=== PATIENT | male | born 1945 | race Caucasian/White ===

== ENCOUNTER → 2019-03-17 | Outpatient (CLI) | payer OTHER ==
[~2019-03-17] MED LIST: BACTRIM DS TAB1 EACH PO; DICLOFENAC SODI25 MG PO; FLOMAX0.4 MG PO; HYZAAR 100-12.1 EACH PO; KEFLEX500 M1 PO; LEVAQUIN 500 M500 M2 PO; NEURONTIN600 MG PO; NORCO 5-325 TA1 EAC1 PO; PROSCAR 5MG TABL5 MG PO; SIMVASTATIN40 MG PO; VENTOLIN HFA 1818 GM INH
== END ==
LOC: M.ULTRA 14:30
DX: M79.605 Pain in left leg (principal); M79.89 Other specified soft tissue disorders

== ENCOUNTER 2019-08-21 21:27 | Emergency (ER) | payer OTHER ==
[~2019-08-21] VITALS: Ht 165.1 cm; Wt 122.5 kg
[2019-08-21 22:19] LABS: HEMOGLOBIN 13.8 gm/dL (14.0-18.0); MCH 29.5 pg (26.0-34.0); MCHC 33.6 g/dL (28.0-37.0); MCV 87.7 fL (80.0-100.0); MPV 9.7 fl. (7.2-11.1); NUCLEATED RBCS 0 /100WBC; PLATELET COUNT* 137 thou/uL (150-400); RBC 4.67 mil/uL (4.50-6.00); RDW-CV 15.1 % (10.5-14.5); WBC 9.7 thou/uL (4.0-11.0)
[2019-08-21 22:30] LABS: CALCIUM 9.4 mg/dL (8.5-10.1); CREATININE 1.1 mg/dL (0.6-1.3); POTASSIUM 3.3 mmol/L (3.5-5.1)
[2019-08-21 22:35] LABS: ALBUMIN 3.4 g/dL (3.4-5.0); TOTAL BILIRUBIN 0.9 mg/dL (<0.1-1.0); TOTAL PROTEIN 6.9 g/dL (6.4-8.2)
[2019-08-21 22:47] LABS: ABSOLUTE LYMPHOCYTES 0.5 thou/uL (0.8-5.3); ABSOLUTE MONOCYTES 0.9 thou/uL (0.0-1.2); ABSOLUTE NEUTROPHILS 8.3 thou/uL (1.6-8.1)
[2019-08-21 22:48] LABS: PLATELET ESTIMATE ADEQUATE
[2019-08-22 01:10] VITALS: BP 147/75
== END 2019-08-22 01:12 | disposition short-term general hospital (02) ==
LOC: M.ERS 21:27
PROVIDERS: Emergency Medicine
DX: S32.19XA Other fracture of sacrum, initial encounter for closed fracture (principal); S80.212A Abrasion, left knee, initial encounter; I10 Essential (primary) hypertension; Z98.890 Other specified postprocedural states; Z87.891 Personal history of nicotine dependence; W18.39XA Other fall on same level, initial encounter; Y93.01 Activity, walking, marching and hiking; Y92.89 Other specified places as the place of occurrence of the external cause; Y99.8 Other external cause status

== ENCOUNTER 2021-02-04 21:56 | Inpatient (IN) | payer OTHER ==
[~2021-02-04] VITALS: Ht 165.1 cm; Wt 147.9 kg
[2021-02-04 21:57] VITALS: BP 158/54
[2021-02-04 22:41] LABS: BE -2.6 mmol/L (-2 to +3); PCO2 42.2 mmHg (35.0-45.0); pH 7.353 (7.340-7.450)
[2021-02-04 22:44] LABS: HEMATOCRIT 42.6 % (42.0-52.0); HEMOGLOBIN 13.8 gm/dL (14.0-18.0); MCHC 32.4 g/dL (28.0-37.0); MCV 86.4 fL (80.0-100.0); MPV 8.6 fl. (7.2-11.1); NUCLEATED RBCS 0 /100WBC; PLATELET COUNT* 160 thou/uL (150-400); RBC 4.93 mil/uL (4.50-6.00); RDW-CV 16.5 % (10.5-14.5)
[2021-02-04 22:53] LABS: CALCIUM 8.8 mg/dL (8.5-10.1); POTASSIUM 4.5 mmol/L (3.5-5.1); PROTIME 10.7 Seconds (9.20-11.50)
[2021-02-04 22:57] LABS: ALBUMIN 3.5 g/dL (3.4-5.0); MAGNESIUM 1.9 mg/dL (1.8-2.4); TOTAL BILIRUBIN 0.7 mg/dL (<0.1-1.0)
[2021-02-04 23:19] LABS: ABSOLUTE LYMPHOCYTES 0.2 thou/uL (0.8-5.3); ABSOLUTE MONOCYTES 0.3 thou/uL (0.0-1.2); ABSOLUTE NEUTROPHILS 7.5 thou/uL (1.6-8.1); PLATELET ESTIMATE ADEQUATE
[2021-02-04 23:35] LABS: URINE BILIRUBIN NEGATIVE (Negative); URINE BLOOD NEGATIVE (Negative); URINE CLARITY CLEAR; URINE COLOR YELLOW; URINE GLUCOSE-RANDOM NEGATIVE (Negative); URINE KETONES NEGATIVE (Negative); URINE LEUKOCYTES-REFLEX NEGATIVE (Negative); URINE NITRITE-REFLEX NEGATIVE (Negative); URINE PROTEIN NEGATIVE (Negative); URINE SPECIFIC GRAVITY 1.025 (1.005-1.030)
[2021-02-05 03:00] VITALS: BP 124/64
[2021-02-05 03:45] VITALS: BP 130/56
[2021-02-05 09:36] VITALS: BP 109/49
[2021-02-05 12:00] VITALS: BP 120/51
[2021-02-05] MEDS ORDERED: LYRICA150 MG PO (13:50)
[2021-02-05] MEDS ORDERED: CENTRUM SILVER1 EAC7 PO (13:53)
[2021-02-05 16:00] VITALS: BP 125/59
[2021-02-06 00:06] VITALS: BP 94/58
[2021-02-06 04:03] VITALS: BP 127/55
[2021-02-06 08:00] VITALS: BP 117/44
[2021-02-06 12:00] VITALS: BP 93/41
[2021-02-06 16:00] VITALS: BP 132/57
[2021-02-06 20:00] VITALS: BP 123/59
[2021-02-07] VITALS: BP 121/55
[2021-02-07 04:00] VITALS: BP 118/52
[2021-02-07 04:46] LABS: HEMOGLOBIN 12.2 gm/dL (14.0-18.0); MCH 27.3 pg (26.0-34.0); MCHC 32.1 g/dL (28.0-37.0); RBC 4.47 mil/uL (4.50-6.00); WBC 2.8 thou/uL (4.0-11.0)
[2021-02-07 04:54] LABS: ALBUMIN 2.6 g/dL (3.4-5.0); CALCIUM 8.7 mg/dL (8.5-10.1); CREATININE 0.9 mg/dL (0.6-1.3); MAGNESIUM 1.8 mg/dL (1.8-2.4); POTASSIUM 3.3 mmol/L (3.5-5.1); TOTAL BILIRUBIN 0.5 mg/dL (<0.1-1.0); TOTAL PROTEIN 5.8 g/dL (6.4-8.2)
[2021-02-07 08:09] VITALS: BP 116/56
[2021-02-07 12:00] VITALS: BP 132/58
--- NOTE | 2021-02-07 13:46 | EKG ---
[place] [address] ELECTROCARDIOGRAM REPORT Name: SOLOMONIGNACIORADHA ANDRE Room: [address] ADM IN M.R.#: [id number] Admission: 02/05/21 Attend Phys: Broderick Valdez Discharge: Date of : 45 Date of Service: 02/04/212200 Report #: [id number] THIS REPORT FOR: //name// [facility] ED Test Date: 2021-02-04 Test Time: 22:01:50 Pat Name: RADHA MARSHALL Department: Room: [facility] Gender: M [employer]: [place] : 1945 Requested By: Teresita Cox Order Number: [id number] MD: Luis Antonio Blackwell Measurements Intervals [place] Rate: 101 P: 55 HI: 159 QRS: -60 QRSD: 137 T: 20 QT: 389 QTc: 505 Interpretive Statements Sinus tachycardia Right bundle branch block Anterolateral infarct, 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
[2021-02-07 16:00] VITALS: BP 122/54
[2021-02-07 20:30] VITALS: BP 104/79
[2021-02-08 00:52] VITALS: BP 121/50
[2021-02-08 08:00] VITALS: BP 120/400
[2021-02-08] MEDS ORDERED: LEVOFLOXACIN500 MG PO (09:42)
[2021-02-08] MEDS ORDERED: LASIX 40 MG TAB40 MG PO (09:42)
[2021-02-08] MEDS ORDERED: POTASSIUM CHLO20 ME2 PO (09:42)
[2021-02-08 15:33] VITALS: BP 120/400
[2021-02-08 15:34] VITALS: BP 120/400
--- NOTE | 2021-02-08 17:21 | 2DMMODE ---
[place] [address] 2 D/M-MODE ECHOCARDIOGRAM Name: ROLANDORADHA ANDRE Room: [address] IN [facility]#: [id number] Admission: 02/05/21 Attend Phys: Broderick Valdez Discharge: 02/08/21 Date of : 45 Date of Service: 02/08/21 1721 Report #: [id number] THIS REPORT FOR: cc: Luis Antonio Gamino John E. DO Liston, Michael J. MD [facility] ~ APPROVED REPORT Study performed: 02/08/2021 15:13:07 EXAM: Comprehensive 2D, Doppler, and color-flow Echocardiogram Patient Location: In-Patient Room #: [facility] Status: routine BSA: 2.43 HR: 74 bpm BP: 121/50 mmHg Rhythm: NSR Other Information Study Quality: Good Indications edema 2D Dimensions IVSd: 11.81 (7-11mm) LVOT Diam: 20.88 (18-24mm) LVDd: 45.52 mm PWd: 10.75 (7-11mm) Ascending Ao: 36.02 (22-36mm) LVDs: 26.73 (25-40mm) Aortic Root: 34.24 mm Aortic Valve AoV Peak Damian.: 1.23 m/s AO Peak Gr.: 6.04 mmHg LVOT Max P.44 mmHg AO Mean Gr.: 3.48 mmHg LVOT Mean P.23 mmHg LVOT Max V: 1.05 m/s AO V2 VTI: 20.39 cm LVOT Mean V: 0.68 m/s SEVERINO (VTI): 3.55 cm2 LVOT V1 VTI: 21.15 cm Mitral Valve E/A Ratio: 0.77 MV Decel. Time: 302.50 ms MV E Max Damian.: 0.63 m/[place] [address] 2 D/M-MODE ECHOCARDIOGRAM Name: RADHA MARSHALL Room: [address] IN M.R.#: [id number] Admission: 02/05/21 Attend Phys: Broderick Valdez Discharge: 02/08/21 Date of : 45 Date of Service: 02/08/21 1721 Report #: [id number] MV PHT: 87.73 ms MVA (PHT): 2.51 cm2 Pulmonary Valve PV Peak Damian.: 1.18 m/s PV Peak Gr.: 5.56 mmHg Left Ventricle The left ventricle is normal size. There is normal LV segmental wall motion. There is normal left ventricular wall thickness. Left ventricular systolic function is normal. LVEF is 60-65%. Grade I - abnormal relaxation pattern. Right Ventricle The right ventricle is normal size. The right ventricular systolic function is normal. Atria The left atrium size is normal. The right atrium size is normal. Aortic Valve The aortic valve is normal in structure. No aortic regurgitation is present. There is no aortic valvular stenosis. Mitral Valve The mitral valve is normal in structure. There is no mitral valve regurgitation noted. No evidence of mitral valve stenosis. Tricuspid Valve The tricuspid valve is normal in structure. Unable to assess PA pressure. Trace tricuspid regurgitation. Pulmonic Valve The pulmonary valve is normal in structure. There is no pulmonic valvular regurgitation. Great Vessels The aortic root is normal in size. IVC is normal in size and collapses >50% with inspiration. Pericardium There is no pericardial effusion. <Conclusion> The left ventricle is normal size. There is normal left [place] [address] 2 D/M-MODE ECHOCARDIOGRAM Name: RADHA MARSHALL Room: [address]#: [id number] Admission: 02/05/21 Attend Phys: Broderick Valdez Discharge: 02/08/21 Date of : 45 Date of Service: 02/08/21 1721 Report #: [id number] Left ventricular systolic function is normal. LVEF is 60-65%. Grade I - abnormal relaxation pattern. Trace tricuspid regurgitation. IVC is normal in size and collapses >50% with inspiration. <ELECTRONICALLY SIGNED> By: Kevin Malone MD, FACC 02/08/211720 20 20 Kevin Malnoe MD, FACC /INF
== END 2021-02-08 15:59 | disposition home health service (06) | DRG 871 ==
LOC: M.ERS 21:56 → M.TBA-ER 02-05 00:02 → M.2W 02-05 00:02 → M.ORTHSURG 02-08 06:50
PROVIDERS: Internal Medicine; Personal Emergency Response Attendant; ADMIT Internal Medicine; ATTEND Internal Medicine
DX: A41.9 Sepsis, unspecified organism (principal); J18.9 Pneumonia, unspecified organism; J96.01 Acute respiratory failure with hypoxia; L03.116 Cellulitis of left lower limb; Z68.43 Body mass index [BMI] 50.0-59.9, adult; I10 Essential (primary) hypertension; G62.9 Polyneuropathy, unspecified; I87.8 Other specified disorders of veins; G89.29 Other chronic pain; M54.9 Dorsalgia, unspecified; E66.01 Morbid (severe) obesity due to excess calories; R73.9 Hyperglycemia, unspecified; Z20.822 Contact with and (suspected) exposure to COVID-19; Z79.899 Other long term (current) drug therapy